=== PATIENT | male | born 1975 ===

== ENCOUNTER 2020-07-25 11:05 | Emergency (ER) | payer SELFPAY ==
[~2020-07-25] VITALS: Ht 182.9 cm; Wt 81.6 kg
--- NOTE | 2020-07-25 19:06 | EKG ---
[facility] [address] [place], [place] [address] Signed Sinus tachycardia Otherwise normal ECG No previous ECGs available Confirmed by ASHLEY GARNER MD ([id number] on 07/25/2020 7:06:05 PM Electronically Signed By: ASHLEY GARNER MD 07/25/20 190 PATIENT NAME: PATSY COFFMAN Electrocardiogram DATE OF : 77 PHYSICIAN: ASHLEY GARNER MD REPORT #: [id number] REPORT IS CONFIDENTIAL AND NOT TO BE RELEASED WITHOUT AUTHORIZATION
== END 2020-07-25 13:20 | disposition home or self-care (01) ==
LOC: ED 11:05
DX: U07.1 COVID-19 (principal); Z87.891 Personal history of nicotine dependence
CPT/HCPCS: 71045; 80053; 83735; 84484; 85025; 93005; 93010; 99285-25; C9803; U0003